=== PATIENT | male | born 1945 | race Caucasian/White ===

== ENCOUNTER 2018-03-08 13:26 | Inpatient (IN) | payer OTHER ==
[2018-03-08 14:27] LABS: Absolute Lymphocytes (CBC) 0.6 K/uL (0.7-4.9); Absolute Monocytes 0.3 K/uL (0.1-1.3); Absolute Neutrophil 10.8 K/uL (1.8-8.0); Basophils % 0.3 % (0-1.3); Hematocrit 44.1 % (39.6-49.0); Lymphocytes % 4.9 % (15.3-44.8); MCH 30.9 pg (27.0-35.0); MCV 94.5 fL (80-100); MPV 7.8 fL (7.6-11.3); Monocytes % 2.7 % (3.3-12.3); RBC Red Blood Cell Count 4.67 M/uL (4.33-5.43)
[2018-03-08 14:30] LABS: Protime INR 0.98
[2018-03-08 14:35] LABS: Magnesium 1.7 mg/dL (1.8-2.5)
[2018-03-08 14:43] LABS: CKMB Creatine Kinase MB 8.1 ng/ml (0.3-4.0)
[2018-03-08 14:58] LABS: Blood Morphology Comment NOT SEEN (NOT SEEN); Platelet Estimate ADEQ; Urine White Blood Cell Casts OK
--- NOTE | 2018-03-08 16:19 | RAD REPORT ---
EXAM DESCRIPTION: Nikhil Single View03/08/2018 3:29 pm CLINICAL HISTORY: Chest pain COMPARISON: none FINDINGS: The lungs appear clear of acute infiltrate. The heart is normal size IMPRESSION: No acute abnormalities displayed
--- NOTE | 2018-03-08 18:21 | ER ---
Nurse's Notes 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 Transition of care: patient was not received from another setting of care. Onset of symptoms was March 08, 2018. Initial Sepsis Screen: Does the patient meet any 2 criteria? No. Patient's initial sepsis screen is negative. Does the patient have a suspected source of infection? No. Patient's initial sepsis screen is negative. Care prior to arrival: Medication(s) given: ASA, 325 mg, x 1, IV initiated. 20 GA, in the right antecubital area. 13:34 Method Of Arrival: EMS: [facility] ph 13:34 Acuity: GUSTAVO 3 ph Historical: - Allergies: 13:40 No Known Drug Allergies; aj - Home Meds: 13:40 omeprazole 20 mg Oral cpDR 1 cap once daily [Active]; levothyroxine 125 mcg tab 1 tab aj once daily [Active]; lisinopril 10 mg Oral tab 1 tab once daily [Active]; paroxetine mesylate oral oral [Active]; clopidogrel 75 mg oral tab 1 tab once daily [Active]; loratadine 10 mg oral TbDL 1 tab once daily [Active]; metoprolol tartrate 100 mg Oral tab 1 tab once daily [Active]; rosuvastatin 10 mg oral tab 1 tab once daily [Active]; - PMHx: 13:40 Hypertension; Hyperlipidemia; Myocardial infarction; Hypothyroidism; aj - PSHx: 13:40 Heart stents; aj - Immunization history:: Adult Immunizations unknown. - Family history:: not pertinent. - Social history:: Smoking status: Patient uses tobacco products, chewing tobacco. - Hospitalizations: : No recent hospitalization is reported. Screenin:42 Abuse screen: Denies threats or abuse. Denies injuries from another. Nutritional ph screening: No deficits noted. Tuberculosis screening: No symptoms or risk factors identified. Fall Risk No fall in past 12 months (0 pts). No secondary diagnosis (0 pts). IV access (20 points). Ambulatory Aid- None/Bed Rest/Nurse Assist (0 pts). Gait- Normal/Bed Rest/Wheelchair (0 pts) Mental Status- Oriented to own ability (0 pts). Assessment: 13:47 General: Appears in no apparent distress. comfortable, unkempt, Behavior is calm, ph cooperative, appropriate for age, Denies fever, feeling ill. Pain: Complains of pain in chest Pain does not radiate. Quality of pain is described as pressure, Pain began 1 hour ago. Neuro: Level of Consciousness is awake, alert, obeys commands, Oriented to person, place, time, situation. Cardiovascular: Reports chest pain, diaphoresis, fatigue, lightheadedness, nausea, shortness of breath, vomiting, Denies syncope, Capillary refill < 3 seconds Patient's skin is warm and dry. Chest pain quality is pressure, is located in right left anterior chest wall began 1 hour prior to arrival. GI: Reports upper abdominal pain, diarrhea, nausea, vomiting, prior to onset of chest pain. Derm: Skin is intact, is healthy with good turgor, Skin is pink, warm \T\ dry. 14:33 Reassessment: Patient appears in no apparent distress at this time. Patient and/or ph family updated on plan of care and expected duration. Pain level reassessed. Patient is alert, oriented x 3, equal unlabored respirations, skin warm/dry/pink. Pt resting quietly, awaiting lab results, daughter at bedside. 15:44 Reassessment: Patient appears in no apparent distress at this time. No changes from ph previously documented assessment. Patient and/or family updated on plan of care and expected duration. Pain level reassessed. Patient is alert, oriented x 3, equal unlabored respirations, skin warm/dry/pink. 17:00 Reassessment: Patient appears in no apparent distress at this time. No changes from ph previously documented assessment. Patient and/or family updated on plan of care and expected duration. Pain level reassessed. Patient is alert, oriented x 3, equal unlabored respirations, skin warm/dry/pink. 18:14 Reassessment: Patient appears in no apparent distress at this time. Patient and/or ph family updated on plan of care and expected duration. Pain level reassessed. Patient is alert, oriented x 3, equal unlabored respirations, skin warm/dry/pink. Pt resting quietly, awaiting results of repeat cardiac enzymes. 19:38 General: Appears in no apparent distress. comfortable, Behavior is calm, cooperative, ao appropriate for age. Pain: Complains of pain in chest Pain currently is 0 out of 10 on a pain scale. Neuro: Level of Consciousness is awake, alert, obeys commands, Oriented to person, place, time, situation. Cardiovascular: Capillary refill < 3 seconds Patient's skin is warm and dry. Respiratory: Airway is patent Respiratory effort is even, unlabored, Respiratory pattern is regular, symmetrical. GI: Abdomen is non-distended. : No signs and/or symptoms were reported regarding the genitourinary system. EENT: No signs and/or symptoms were reported regarding the EENT system. Derm: Skin is intact, is healthy with good turgor, Skin is pink, warm \T\ dry. Skin temperature is warm. Musculoskeletal: No signs and/or symptoms reported regarding the musculoskeletal system. Vital Signs: 13:40 BP 154 / 82; Pulse 55; Resp 18; Temp 97.5(TE); Pulse Ox 98% on R/A; ph 14:34 BP 144 / 75; Pulse 51; Resp 18; Pulse Ox 100% on R/A; ph 15:24 BP 161 / 77; Pulse 50; Resp 16; Pulse Ox 98% on R/A; ph 17:00 BP 164 / 72 (art line/); Pulse 55; Resp 16; Pulse Ox 99% on R/A; ph 18:15 BP 152 / 83; Pulse 65; Resp 18; Pulse Ox 99% on R/A; ph 19:38 BP 139 / 77; Pulse 64; Resp 18; Pulse Ox 98% on R/A; Pain 0/10; ao ED Course: 13:28 Patient arrived in ED. rn 13:28 William Kamara MD is Attending Physician. rn 13:34 Josi Lira RN is Primary Nurse. ph 13:39 Triage completed. ph 13:41 Arm band placed on. ph 13:44 Patient has correct armband on for positive identification. Placed in gown. Bed in low ph position. Call light in reach. Side rails up X 1. test carrier on. Pulse ox on. NIBP on. Warm blanket given. 14:00 Maintain EMS IV. Dressing intact. Good blood return noted. Site clean \T\ dry. Gauge \T\ ph site: 20 RAC. 14:01 X-ray completed. Portable x-ray completed in exam room. Patient tolerated procedure jr1 well. 15:29 XRAY Chest (1 view) In Process Unspecified. EDMS 18:21 Torres Topete DO is Hospitalizing Provider. rn 20:28 No provider procedures requiring assistance completed. Patient admitted, IV remains in ao place. Administered Medications: No medications were administered Outcome: 18:21 Decision to Hospitalize by Provider. rn 20:29 Admitted to Tele accompanied by tech, room 426, Report called to MOSES Díaz ao 20:29 Condition: stable 20:29 Instructed on the need for admit. 20:30 Patient left the ED. ao Signatures: Dispatcher [employer] EDMS Eunice Long, RN MOSES Rockwell Shyla jr1 William Kamara MD MD rn Hall, Patricia, RN RN ph Ortiz, Alex, RN RN ao Corrections: (The following items were deleted from the chart) 18:18 18:15 BP 152 / 83; Pulse 65bpm; Resp 84bpm; Pulse Ox 99% RA; ph ph
--- NOTE | 2018-03-08 18:22 | EDPHYS ---
Physician Documentation [facility] Name: Georgi Bear Age: 72 yrs Sex: Male : 1945 Arrival Date: 03/08/2018 Time: 13:28 Bed 5 Private MD: ED Physician William Kamara HPI: 03/08 13:39 This 72 yrs old Male presents to ER via Unassigned with complaints of chest rn pain. 13:39 The patient or guardian reports chest pain that is located primarily in the substernal rn area. Onset: 1 hour(s) ago. The pain does not radiate. Associated signs and symptoms: Pertinent positives: diaphoresis, nausea. The chest pain is described as a heaviness. Duration: The patient or guardian reports a single episode. Modifying factors: The symptoms are alleviated by nothing. the symptoms are aggravated by nothing. Severity of pain: At its worst the pain was moderate in the emergency department the pain has improved. The patient has experienced a previous episode. Reports 1 hour of heaviness, non-radiating, assoc with nausea and diaphoresis. . Historical: - Allergies: 13:40 No Known Drug Allergies; aj - Home Meds: 13:40 omeprazole 20 mg Oral cpDR 1 cap once daily [Active]; levothyroxine 125 mcg tab 1 tab aj once daily [Active]; lisinopril 10 mg Oral tab 1 tab once daily [Active]; paroxetine mesylate oral oral [Active]; clopidogrel 75 mg oral tab 1 tab once daily [Active]; loratadine 10 mg oral TbDL 1 tab once daily [Active]; metoprolol tartrate 100 mg Oral tab 1 tab once daily [Active]; rosuvastatin 10 mg oral tab 1 tab once daily [Active]; - PMHx: 13:40 Hypertension; Hyperlipidemia; Myocardial infarction; Hypothyroidism; aj - PSHx: 13:40 Heart stents; aj - Immunization history:: Adult Immunizations unknown. - Family history:: not pertinent. - Social history:: Smoking status: Patient uses tobacco products, chewing tobacco. - Hospitalizations: : No recent hospitalization is reported. ROS: 13:39 Constitutional: Negative for fever, chills, and weight loss, Eyes: Negative for injury, rn pain, redness, and discharge, Neck: Negative for injury, pain, and swelling, Cardiovascular: Negative for palpitations, and edema, Respiratory: Negative for shortness of breath, cough, wheezing, and pleuritic chest pain, Abdomen/GI: Negative for abdominal pain, vomiting, and constipation, Back: Negative for injury and pain, MS/Extremity: Negative for injury and deformity, Skin: Negative for injury, rash, and discoloration, Neuro: Negative for headache, and seizure. Exam: 13:39 Constitutional: This is a well developed, well nourished patient who is awake, alert, rn and in no acute distress. Head/Face: Normocephalic, atraumatic. Eyes: Pupils equal round and reactive to light, extra-ocular motions intact. Lids and lashes normal. Conjunctiva and sclera are non-icteric and not injected. Cornea within normal limits. Periorbital areas with no swelling, redness, or edema. Neck: Trachea midline, no thyromegaly or masses palpated, and no cervical lymphadenopathy. Supple, full range of motion without nuchal rigidity, or vertebral point tenderness. No Meningismus. Cardiovascular: bradycardic, regular, no murmur Respiratory: Lungs have equal breath sounds bilaterally, clear to auscultation and percussion. No rales, rhonchi or wheezes noted. No increased work of breathing, no retractions or nasal flaring. Abdomen/GI: Soft, non-tender, with normal bowel sounds. No distension or tympany. No guarding or rebound. No evidence of tenderness throughout. MS/ Extremity: Pulses equal, no cyanosis. Neurovascular intact. Full, normal range of motion. Equal circumference. Neuro: Awake and alert, GCS 15, oriented to person, place, time, and situation. Cranial nerves II-XII grossly intact. Motor strength 5/5 in all extremities. Sensory grossly intact. 14:02 ECG was reviewed by the Attending Physician. rn Vital Signs: 13:40 BP 154 / 82; Pulse 55; Resp 18; Temp 97.5(TE); Pulse Ox 98% on R/A; ph 14:34 BP 144 / 75; Pulse 51; Resp 18; Pulse Ox 100% on R/A; ph 15:24 BP 161 / 77; Pulse 50; Resp 16; Pulse Ox 98% on R/A; ph 17:00 BP 164 / 72 (art line/); Pulse 55; Resp 16; Pulse Ox 99% on R/A; ph 18:15 BP 152 / 83; Pulse 65; Resp 18; Pulse Ox 99% on R/A; ph 19:38 BP 139 / 77; Pulse 64; Resp 18; Pulse Ox 98% on R/A; Pain 0/10; ao MDM: 13:28 Patient medically screened. rn 15:54 ED course: Offered observation for chest pain given similar presentation in past that rn ended up as MD, patient does not want to be admitted/stay overnight, convinced him to get atleast repeat ecg/trop and if still normal then can go home with close cardiology/pcp f/u. . 18:19 Differential diagnosis: acute myocardial infarction, acute pericarditis, coronary rn artery disease pericarditis, pleurisy, pneumonia, pneumothorax. The patient was not given aspirin in the Emergency Department. Administered by EMS. Data reviewed: vital signs, nurses notes, lab test result(s), EKG, radiologic studies, plain films, and as a result, I will admit patient. Counseling: I had a detailed discussion with the patient and/or guardian regarding: the historical points, exam findings, and any diagnostic results supporting the discharge/admit diagnosis, lab results, radiology results, the need for further work-up and treatment in the hospital. ED course: repeat trop normal, no change, CKMB decreasing, still having chest pain, family arrived and convinced to stay overnight, admitted to Dr. Martin \T\ [id number]. . 03/08 13:30 Order name: Basic Metabolic Panel rn 03/08 13:30 Order name: BNP; Complete Time: 14:57 rn 03/08 13:30 Order name: CBC with Diff; Complete Time: 15:18 rn 03/08 13:30 Order name: Ckmb rn 03/08 13:30 Order name: CPK; Complete Time: 14:57 rn 03/08 13:30 Order name: Magnesium; Complete Time: 14:57 rn 03/08 13:30 Order name: PT-INR; Complete Time: 14:57 rn 03/08 13:30 Order name: Ptt, Activated; Complete Time: 14:57 rn 03/08 13:30 Order name: Troponin (emerg Dept Use Only); Complete Time: 14:57 rn 03/08 13:31 Order name: Basic Metabolic Panel; Complete Time: 14:57 ED[facility] 03/08 13:31 Order name: CKMB Creatine Kinase MB; Complete Time: 14:57 EDNH 03/08 14:32 Order name: CBC Smear Scan; Complete Time: 15:18 [facility] 03/08 16:29 Order name: Troponin (emerg Dept Use Only); Complete Time: 17:42 rn 03/08 16:29 Order name: Ckmb; Complete Time: 17:42 rn 03/08 13:30 Order name: XRAY Chest (1 view); Complete Time: 16:28 rn 03/08 13:30 Order name: EKG; Complete Time: 13:31 rn 03/08 13:30 Order name: Cardiac monitoring; Complete Time: 14:35 rn 03/08 13:30 Order name: EKG - Nurse/Tech; Complete Time: 14:35 rn 03/08 13:30 Order name: IV Saline Lock; Complete Time: 14:35 rn 03/08 13:30 Order name: Labs collected and sent; Complete Time: 14:35 rn 03/08 13:30 Order name: O2 Per Protocol; Complete Time: 14:35 rn 03/08 13:30 Order name: O2 Sat Monitoring; Complete Time: 14:36 rn 03/08 16:29 Order name: EKG; Complete Time: 16:29 rn 03/08 16:29 Order name: EKG - Nurse/Tech; Complete Time: 18:13 rn EC:02 Rate is 49 beats/min. Rhythm is regular. QRS Browns is Normal. MA interval is normal. QRS rn interval is normal. QT interval is normal. No Q waves. T waves are Normal. No ST changes noted. Clinical impression: Normal ECG. Interpreted by me. Administered Medications: No medications were administered Disposition: 03/08/18 18:21 Hospitalization ordered by Torres Topete for Observation. Preliminary diagnosis is Chest pain, unspecified. - Bed requested for Telemetry/MedSurg (observation). - Status is Observation. ao - Condition is Stable. - Problem is new. - Symptoms have improved. UTI on Admission? No Signatures: Dispatcher [employer] EDMS Eunice Long RN William Robles MD MD rn Hall, Patricia, RN RN ph Ortiz, Alex RN Josy Ferrara Corrections: (The following items were deleted from the chart) 18:24 18:21 Hospitalization Ordered by [facility] DO for Observation. Preliminary eb diagnosis is Chest pain, unspecified. Bed requested for Telemetry/MedSurg (observation). Status is Observation. Condition is Stable. Problem is new. Symptoms have improved. UTI on Admission? No. rn 18:27 18:24 03/08/2018 18:21 Hospitalization Ordered by [facility] DO for Observation. eb Preliminary diagnosis is Chest pain, unspecified. Bed requested for Telemetry/MedSurg (observation). Status is Observation. Condition is Stable. Problem is new. Symptoms have improved. UTI on Admission? No. eb 18:56 18:27 03/08/2018 18:21 Hospitalization Ordered by [facility] DO for Observation. eb Preliminary diagnosis is Chest pain, unspecified. Bed requested for Telemetry/MedSurg (observation). Status is Observation. Condition is Stable. Problem is new. Symptoms have improved. UTI on Admission? No. eb 20:30 18:56 03/08/2018 18:21 Hospitalization Ordered by [facility] for Observation. ao Preliminary diagnosis is Chest pain, unspecified. Bed requested for Telemetry/MedSurg (observation). Status is Observation. Condition is Stable. Problem is new. Symptoms have improved. UTI on Admission? No. eb
--- NOTE | 2018-03-08 19:49 | P.HP ---
Certification for Inpatient Patient admitted to: Observation With expected LOS: <2 Midnights Practitioner: I am a practitioner with admitting privileges, knowledge of patient current condition, hospital course, and medical plan of care. Services: Services provided to patient in accordance with Admission requirements found in Title 42 Section 412.3 of the Code of Federal Regulations Patient History Date of Service: 03/08/18 Reason for admission: chest pain History of Present Illness: Mr Bear is a 72 years old male with history of HTN, dyslipidemia, who came to ED due to chest pain. He states that he usually has recurrent episodes of chest pain that last for a few minutes and relieve by itself, starting many years ago. Today he had chest pain starting about 1 hour to come to ED. The pain was substernal, described as heaviness sensation, no radiation, about 10/10 of intensity, associated with N/V and diaphoresis. EKG shows non-specific ST-T abnormalities. Trop I negative x 2. Allergies No Known Drug Allergies Allergy (Verified 05/02/15 23:18) Unknown Home Medications: Aspirin Enteric Coated [Ecotrin*] 325 mg PO DAILY 05/02/15 Clopidogrel Bisulfate [Plavix*] 75 mg PO DAILY 05/02/15 Levothyroxine [Synthroid*] 125 mcg PO [id number] 05/02/15 Lisinopril 10 mg PO DAILY 05/02/15 Loratadine [Claritin*] 10 mg PO DAILY 05/02/15 Metoprolol Tartrate [Lopressor] 100 mg PO BID 05/02/15 Omeprazole 20 mg PO DAILY 05/02/15 Rosuvastatin [Crestor*] 10 mg PO DAILY 05/02/15 Primidone [Mysoline] 50 mg PO DAILY #30 tablet 05/04/15 Thiamine HCl [Vitamin B-1*] 100 mg PO DAILY #15 tablet 05/04/15 - Past Medical/Surgical History Diabetic: No -: HTn -: High Cholesteral -: Hypothyroidism -: Seasonal Allergies -: Heart stents - Family History Family History: Reviewed- Non-Contributory - Social History Smoking Status: Former smoker Alcohol use: Yes CD- Drugs: No Caffeine use: Yes Place of Residence: Home Review of Systems 10-point ROS is otherwise unremarkable Physical Examination - Physical Exam General: Alert, In no apparent distress HEENT: Atraumatic, PERRLA, Mucous membr. moist/pink, EOMI, Sclerae nonicteric Neck: Supple, 2+ carotid pulse no bruit, No LAD, Without JVD or thyroid abnormality Respiratory: Clear to auscultation bilaterally, Normal air movement Cardiovascular: Regular rate/rhythm, Normal S1 S2 Gastrointestinal: Normal bowel sounds, Tenderness (teneder to palpation in epigastrium.) Musculoskeletal: No tenderness Integumentary: No rashes Neurological: Normal speech, Normal strength at 5/5 x4 extr, Normal tone, Normal affect Lymphatics: No axilla or inguinal lymphadenopathy - Studies Laboratory Data (last 24 hrs) 03/08/18 14:10: PT 11.6, INR 0.98, APTT 24.0 L 03/08/18 14:10: WBC 11.7 H, Hgb 14.5, Hct 44.1, Plt Count 276 03/08/18 14:10: B-Natriuretic Peptide 68 03/08/18 14:10: Sodium 137, Potassium 4.0, BUN 10, Creatinine 0.93, Glucose 165 H, Magnesium 1.7 L Assessment and Plan - Problems (Diagnosis) (1) Chest pain Current Visit: Yes Status: Acute Qualifiers: Chest pain type: precordial pain Qualified Code(s): R07.2 - Precordial pain (2) HTN (hypertension) Current Visit: Yes Status: Acute Qualifiers: Hypertension type: essential hypertension Qualified Code(s): I10 - Essential (primary) hypertension (3) Dyslipidemia Current Visit: Yes Status: Acute - Plan The patient will be admitted to the hospital under observation due to chest pain. So far he has negative cardiac enzymes and no EKG significant changes. 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 Will resume ASA. Plavix, will check lipid profile, continue statins, cardiology consult, order ECHO. - Advance Directives Does patient have a Living Will: No Does patient have a Durable POA for Healthcare: No - Code Status/Comfort Care Code Status Assessed: Yes Code Status: Full Code
[2018-03-08] MEDS ORDERED: MORPHINE 4 MG/ML SYR IV PRN (20:35)
[2018-03-08] MEDS ORDERED: NITROGLYCERIN/D5W 50 MG/250 ML BTL IV PRN (20:35)
[2018-03-08 21:37] LABS: Absolute Lymphocytes (CBC) 1.2 K/uL (0.7-4.9); Absolute Monocytes 1.1 K/uL (0.1-1.3); Absolute Neutrophil 12.6 K/uL (1.8-8.0); Basophils % 0.2 % (0-1.3); Lymphocytes % 8.3 % (15.3-44.8); MCH 31.7 pg (27.0-35.0); MCV 92.8 fL (80-100); MPV 7.6 fL (7.6-11.3); Monocytes % 7.3 % (3.3-12.3); RBC Red Blood Cell Count 4.42 M/uL (4.33-5.43)
[2018-03-08 22:04] LABS: CKMB Creatine Kinase MB 5.6 ng/ml (0.3-4.0); Potassium 4.1 mEq/L (3.6-5.0)
[2018-03-08] MEDS ORDERED: MAGNESIUM SULFATE 1 gm IVPB 1 GM/100 ML BAG IV ONE (22:07)
[2018-03-09] MEDS: ACETAMINOPHEN 500 MG TAB PO PRN ×3 (00:38→17:58)
[2018-03-09] MEDS: POLYETHYL GLY 3350 17 GM/DOSE PO PRN (01:16)
[2018-03-09 05:40] LABS: BUN Blood Urea Nitrogen 9 mg/dL (6-20); Bicarbonate 26 mEq/L (21-31); CKMB Creatine Kinase MB 3.1 ng/ml (0.3-4.0); Creatine Phosphokinase 179 IU/L (22-269); Glucose Level 114 mg/dL (65-120); Magnesium 1.9 mg/dL (1.8-2.5); Potassium 3.7 mEq/L (3.6-5.0); Sodium Level 135 mEq/L (135-145)
--- NOTE | 2018-03-09 05:49 | EKG ---
Test Date: 2018-03-08 Test Time: 13:58:10 Events Intern: JEANNE MEASUREMENT RESULTS: Intervals: Rate: 49 VA: 156 QRSD: 104 QT: 458 QTc: 413 [place]k: P: 53 VA: 156 QRS: 70 T: 60 INTERPRETIVE STATEMENTS: Sinus bradycardia Otherwise normal ECG Compared to ECG 05/02/2015 11:51:33 Sinus rhythm no longer present Electronically Signed On 03-09-18 05:48:05 CDT by Abel Dalal
--- NOTE | 2018-03-09 05:49 | EKG ---
Test Date: 2018-03-08 Test Time: 17:22:12 Saturation Diver: TERA MEASUREMENT RESULTS: Intervals: Rate: 57 MT: 142 QRSD: 102 QT: 432 QTc: 420 [place]: P: 37 MT: 142 QRS: 82 T: 71 INTERPRETIVE STATEMENTS: Sinus bradycardia Otherwise normal ECG Compared to ECG 03/08/2018 13:58:10 No significant changes Electronically Signed On 03-09-18 05:48:01 CDT by Abel Dalal
[2018-03-09] MEDS ORDERED: POTASSIUM 25 MEQ EFFERV TAB PO ONE (06:30)
[2018-03-09] MEDS: ASPIRIN EC 81 MG TAB PO SCH (08:17)
[2018-03-09] MEDS: ENOXAPARIN 40 MG/0.4 ML SQ SCH (08:17)
[2018-03-09 08:27] LABS: Urine Appearance CLOUDY; Urine Bilirubin NEGATIVE (NEG); Urine Blood 2+ (NEG); Urine Color DK YELLOW; Urine Glucose NEGATIVE (NEG); Urine Protein 2+ (NEG); Urine Specific Gravity 1.025 (1.005-1.030)
[2018-03-09 08:44] LABS: Urine Bacteria LOADED /HPF (NONE SEEN); Urine Culture Reflex Order REFLEXED
[2018-03-09] MEDS: HYDROCODONE/APAP 5/325 MG TAB PO PRN (09:06)
[2018-03-09] MEDS: CEFTRIAXONE/SWI 1gm 1 GM/10 ML SYR IVP SCH (12:12)
[2018-03-09 13:46] LABS: CKMB Creatine Kinase MB 1.7 ng/ml (0.3-4.0)
--- NOTE | 2018-03-09 16:13 | P.PN ---
Subjective Date of Service: 03/09/18 Chief Complaint: chest pain Subjective: Other (complaining of back pain especially on the right side) Review of Systems 10-point ROS is otherwise unremarkable Physical Examination - Vital Signs Temperature: 98.8 F Blood Pressure: 114/65 Pulse: 80 Respirations: 16 Pulse Ox (%): 95 - Physical Exam General: Alert, In no apparent distress, Oriented x3 HEENT: Atraumatic, Normocephalic, PERRLA Neck: Supple, JVD not distended, No Thyromegaly Respiratory: Clear to auscultation bilaterally, Normal air movement Cardiovascular: No edema, Normal pulses, Regular rate/rhythm, Normal S1 S2, No gallops, No rubs, No murmurs Gastrointestinal: Normal bowel sounds, Soft and benign, W/out hepatosplenomegaly , No ascites, No tenderness, No masses, No rebound, No guarding Musculoskeletal: No clubbing, No swelling, No contractures, No erythema, No tenderness, No warmth Assessment And Plan - Current Problems (Diagnosis) (1) UTI (urinary tract infection) Current Visit: Yes Status: Acute Plan: rising wbc with fever this am will start ceftraixone follow culture results (2) Chest pain Current Visit: Yes Status: Acute Plan: resolved, appeared to be atypical serial enzymes and EKG negative Qualifiers: Chest pain type: precordial pain Qualified Code(s): R07.2 - Precordial pain (3) HTN (hypertension) Current Visit: Yes Status: Acute Plan: restart home medication Qualifiers: Hypertension type: essential hypertension Qualified Code(s): I10 - Essential (primary) hypertension Physician Review: Patient Assessed, Agree with Above Assessment and Plan Time Spent Managing PTS Care (In Minutes): 25
[2018-03-10] MEDS: POLYETHYL GLY 3350 17 GM/DOSE PO PRN (03:48)
[2018-03-10] MEDS: HYDROCODONE/APAP 5/325 MG TAB PO PRN (03:48)
[2018-03-10 06:30] LABS: Potassium 3.6 mEq/L (3.6-5.0)
[2018-03-10] MEDS ORDERED: POTASSIUM 25 MEQ EFFERV TAB PO ONE (06:37)
[2018-03-10] MEDS ORDERED: Morphine 2 MG/2 ML SYR IV PRN (07:28)
[2018-03-10] MEDS ORDERED: NA CHLORIDE 0.9% 1,000 ML IV SCH (08:00)
[2018-03-10 08:17] LABS: Absolute Monocytes 0.3 K/uL (0.1-1.3); Absolute Neutrophil 11.2 K/uL (1.8-8.0); Basophils % 0.2 % (0-1.3); Hematocrit 44.2 % (39.6-49.0); Lymphocytes % 7.9 % (15.3-44.8); MCH 31.6 pg (27.0-35.0); MCV 94.2 fL (80-100); MPV 7.6 fL (7.6-11.3); Monocytes % 2.4 % (3.3-12.3); RBC Red Blood Cell Count 4.69 M/uL (4.33-5.43)
[2018-03-10] MEDS: ENOXAPARIN 40 MG/0.4 ML SQ SCH (08:43)
[2018-03-10] MEDS: ASPIRIN EC 81 MG TAB PO SCH (08:43)
[2018-03-10] MEDS: CEFTRIAXONE/SWI 1gm 1 GM/10 ML SYR IVP SCH (08:43)
[2018-03-10] MEDS ORDERED: CLOPIDOGREL 75 MG TABLET PO SCH (09:00)
[2018-03-10] MEDS ORDERED: PARoxetine HCl 10 MG TAB PO SCH (09:00)
[2018-03-10] MEDS ORDERED: METOPROLOL XL 100 MG TAB PO SCH (09:00)
[2018-03-10] MEDS ORDERED: LISINOPRIL 10 MG TAB PO SCH (09:00)
[2018-03-10] MEDS ORDERED: DONEPEZIL HCL 5 MG TAB PO SCH (09:00)
[2018-03-10 09:07] LABS: Thyroid Stimulating Hormone 13.25 uIU/mL (0.34-5.60)
--- NOTE | 2018-03-10 09:14 | RAD REPORT ---
EXAM DESCRIPTION: CT - Abdomen Pelvis Wo Contrast - 03/10/2018 8:15 am CLINICAL HISTORY: Abdominal pain COMPARISON: None TECHNIQUE: Computed axial tomography of the abdomen and pelvis was obtained. IV and oral contrast we re not requested. All CT scans are performed using dose optimization technique as appropriate and may include automated exposure control or mA/KV adjustment according to patient size. FINDINGS: The evaluation of solid organs, vessels and bowel is limited secondary to the lack of con trast administration. The liver, spleen, pancreas, adrenals and kidneys appear grossly normal. The appendix is enlarged and indistinct. It contains several stones. Extraluminal air is noted. Marke d stranding is present within the adjacent fat. A small amount ascites is present. A 3 centimeter flu id collection within the cul-de-sac may represent an early abscess IMPRESSION: Perforated appendicitis The exam was discussed with Dr. Topete at 9:05 a.m. March 10, 2018
[2018-03-10 09:25] LABS: Blood Morphology Comment NOT SEEN (NOT SEEN); Platelet Estimate ADEQ; Urine White Blood Cell Casts OK
[2018-03-10] MEDS ORDERED: SODIUM CHLORIDE 0.9% 10ML INJ IV PRN (09:26)
[2018-03-10] MEDS ORDERED: ACETAMINOPHEN 650MG/RECT SUPP PR PRN (09:30)
[2018-03-10] MEDS: METRONIDAZOLE 500mg IVPB 500 MG/100 ML BAG IV SCH ×2 (09:32→17:30)
[2018-03-10] MEDS: Levofloxacin500mg IV 500 MG/100 ML BAG IV SCH (09:34)
--- NOTE | 2018-03-10 09:55 | P.PN ---
Subjective Date of Service: 03/10/18 Primary Care Provider: Dr. Mariano Chief Complaint: chest pain/abdominal pain Subjective: Other (Patient with more abdominal pain noted to the periumbilical and lower quadrant region.) Physical Examination - Vital Signs Temperature: 99.1 F Blood Pressure: 133/71 Pulse: 94 Respirations: 18 Pulse Ox (%): 93 - Physical Exam General: Alert, In no apparent distress, Oriented x3, Cooperative HEENT: Atraumatic Neck: Supple Respiratory: Clear to auscultation bilaterally, Normal air movement Cardiovascular: Normal pulses, Regular rate/rhythm Gastrointestinal: Hypoactive (Throughout), Distended (Some distension noted), Tenderness (Pain to the periumbilical and lower quadrant region. Also to the right lower quadrant.) Musculoskeletal: No erythema, No tenderness, No warmth Integumentary: No tenderness/swelling, No erythema, No warmth, No cyanosis Neurological: Normal speech, Normal strength at 5/5 x4 extr, Normal tone, Normal affect - Studies Medications List Reviewed: Yes Assessment & Plan - Problems (Diagnosis) (1) Perforated appendicitis Current Visit: Yes Status: Acute Plan: Patient with increasing abdominal pain, abdominal distension this morning. Patient with nausea but no vomiting. Stat CT scan shows perforated appendicitis. Case discussed at length with surgery. I will keep the patient NPO. I will change IV antibiotic therapy to Levaquin and Flagyl. I will increase IV fluids. Anticipate surgery. Surgery-Dr. Valdivia to evaluate patient soon. Will transfer the patient to ICU for close monitoring. Will obtain blood cultures and lab. Case discussed at length with patient and . They understand the risks and benefits of surgery. (2) Hypothyroidism Current Visit: Yes Status: Chronic Plan: I will change medication to IV as the patient is NPO. Qualifiers: Hypothyroidism type: unspecified Qualified Code(s): E03.9 - Hypothyroidism , unspecified (3) Chest pain Current Visit: Yes Status: Acute Plan: So far cardiac enzymes have been unremarkable. Will check echocardiogram. Patient low risk for surgery. Qualifiers: Chest pain type: precordial pain Qualified Code(s): R07.2 - Precordial pain (4) Dyslipidemia Current Visit: Yes Status: Chronic Plan: Will review fasting lipid panel. Will hold his medication at this time. (5) HTN (hypertension) Current Visit: Yes Status: Chronic Plan: Will hold blood pressure medication at this time. Will monitor closely. Qualifiers: Hypertension type: essential hypertension Qualified Code(s): I10 - Essential (primary) hypertension (6) UTI (urinary tract infection) Current Visit: Yes Status: Acute Plan: Patient with UTI. Urine culture pending. Will obtain blood cultures. Will continue as above for ruptured appendix. Qualifiers: Urinary tract infection type: site unspecified (7) GERD (gastroesophageal reflux disease) Current Visit: Yes Status: Suspected Plan: Will start IV Protonix. (8) Hyponatremia Current Visit: Yes Status: Acute Plan: This may be from volume depletion. Will increase IV fluids. Discharge Plan: Home Plan to discharge in: Greater than 2 days - Code Status/Comfort Care Code Status Assessed: Yes Code Status: Full Code Time Spent Managing Pts Care (In Minutes): 55
[2018-03-10] MEDS ORDERED: DIPHENHYDRAMINE 50 MG/ML VIAL ONE (10:35)
[2018-03-10] MEDS: NA CHLORIDE 0.9% 1,000 ML IV SCH ×3 (10:41→21:47)
[2018-03-10] MEDS ORDERED: Ringers Lactate 1,000 ML IV ONE (12:36)
[2018-03-10] MEDS ORDERED: PROPOFOL 200 MG/20 ML VIAL IV ONE (13:18)
[2018-03-10] MEDS ORDERED: MIDAZOLAM HCL 2 MG/2 ML INJ ONE (13:19)
[2018-03-10] MEDS ORDERED: LIDOCAINE 2% MPF 5 ML VIAL ONE (13:19)
[2018-03-10] MEDS ORDERED: ROCURONIUM 50 MG/5 ML VIAL IV ONE (13:20)
[2018-03-10] MEDS ORDERED: ONDANSETRON 4 MG/2 ML VIAL ONE (13:20)
[2018-03-10] MEDS ORDERED: FENTANYL CITR 100 MCG/2 ML ONE (13:21)
--- NOTE | 2018-03-10 13:58 | P.HP ---
Date of Service: 03/10/18 PC: This 72-year-old male presents emergency room with severe chest pain for diagnosis and treatment. HPC: Patient was admitted initially with chest pain. All teams complaining of pain and difficulty in the upper portion of his chest. He was admitted for observation and workup of this condition. His pain has now shifted to the right lower quadrant and he is having severe issues this morning. His primary care physician ordered a CT scan which demonstrates acute appendicitis with fecalith some possible perforation. PMH: Coronary artery disease PSHx: Negative SOC: No known allergy. Has been on Plavix, aspirin, and Lovenox SYS REVIEW: No cough, wheeze, shortness of breath. States he has had not any prior episodes of this chest pain. His abdomen had been not giving him any problems. Denies any urinary complaints. O/E awake alert very uncomfortable at the moment HEENT: Not jaundice Chest: Chest movement equal bilaterally ABD: Tender with guarding in the right lower quadrant LOCO: Intact DATA: Data white cell count, CT scan shows fecal this with small amount of free air fluid in the pelvis IMPRESSION: Acute abdomen with probable ruptured appendix PLAN: I will take him to the operating room for laparoscopic possible open appendectomy. The risks of this procedure have been discussed. The possibility of bleeding, infection, injury to bowel and surrounding structures were outlined. He understands and wants us to proceed. Possibility of abscess formation further surgery was also described.
[2018-03-10] MEDS ORDERED: Phenylephrine HCl 10 MG/ML 1 ML VIAL ONE (13:59)
[2018-03-10] MEDS ORDERED: FENTANYL CITR 250 MCG/5 ML ONE (14:56)
[2018-03-10] MEDS ORDERED: GLYCOPYRROLATE 0.2 MG/ML SYR ONE (15:06)
[2018-03-10] MEDS ORDERED: NEOSTIGMINE 1 MG/ML -5 ML SYRINGE ONE (15:07)
--- NOTE | 2018-03-10 15:09 | P.OP ---
Preoperative diagnosis: Acute abdomen Postoperative diagnosis: Acute abdomen with ruptured appendix Primary procedure: Laparoscopic laparoscopic appendectomy Secondary procedure: Drainage of intra-abdominal abscess Anesthesia: General Estimated blood loss: Less than 20 cc Specimen: 1 appendix Operative Technique: The patient was brought to the operating room and placed supine on the table. After the induction of adequate general endotracheal anesthesia, in the placement of a Yi catheter, the area of the abdomen was prepped with a DuraPrep solution, and he was draped in usual aseptic manner. A subumbilical incision was made. This was brought down through the skin and subcutaneous tissue. The Visiport was then used to enter the peritoneal cavity and created pneumoperitoneum to approximately 12 mm of mercury. Under direct vision a 5 mm trocar was placed in the right upper quadrant, and another 5 mm trocar in the lower midline. We were now able to visualize the right lower quadrant. We could see very obvious inflammatory tied there were adhesions of the omentum and the small bowel to the anterior abdominal wall. These adhesions were gently loosen. The omentum was swept to the side. Underneath a loop of small bowel we encounter some thick blackish foul-smelling that did purulent material consistent with a ruptured abscess. This was aspirated from the peritoneal cavity. Mobilizing this piece of small bowel allowed us to see the appendix that had been ruptured. It was just along the pelvic sidewall overlying the iliac news gently mobilize from the surrounding structures. The base was traced back to the cecum. At this point it was noted that this portion of the bowel was markedly inflamed and edematous. The appendix had actually ruptured just here at the base and we saw a fecalith freed and the peritoneal cavity. The appendix was fully amputated using the Metzenbaum scissors. Now grasping the base of the appendix were able to secure it with 2 pre tied sutures of chromic. The appendix having been ligated, the mesentery of the appendix was taken down using a vascular reload on the linear Stapler. The specimen was now placed into an Endo pouch, and brought out through the umbilical trocar site. The abdomen was now inspected to ensure adequate hemostasis. Lower quadrant was irrigated with a copious amount of saline solution until the effluent was clear. A 10 mm drain was introduced into the peritoneal cavity. It was placed in the right lower quadrant and brought out more lower most trocar. Once again the at was inspected for adequate hemostasis. The intestines were returned to their anatomical positions. The patient was flattened on the OR table. The pneumoperitoneum was now collapsed, the suture that had been placed using the Endo Close was tied to approximate the umbilical fascia. Winston were then applied to the skin. At the end of the procedure he was in a stable condition when sent to the recovery room. Needle sponge instrument count were correct. 1 drain was placed. Estimated blood loss was less than 20 cc. Complications: None Drain(s): FRANCOISE drain Transferred to: Recovery Room Condition: Good
--- NOTE | 2018-03-10 16:33 | ECHO ---
HEIGHT: 6 ft 1 in WEIGHT: 202 lb 6.4 oz DATE OF STUDY: 03/10/[address]: Torres Topete DO 2-DIMENSIONAL: YES M.MODE: YES DOPPLER: YES COLOR FLOW: YES TDS: PORTABLE: DEFINITY: BUBBLE STUDY: DIAGNOSIS: PREOP CARDIAC HISTORY: CATHERIZATION: NO SURGERY: NO PROSTHETIC VALVE: NO PACEMAKER: NO MEASUREMENTS (cm) DIASTOLIC (NORMALS) SYSTOLIC (NORMALS) IVSd 1.0 (0.6-1.2) LA Diam 3.4 (1.9-4.0) LVEF 65% LVIDd 4.0 (3.5-5.7) LVIDs 2.6 (2.0-3.5) %FS 35% LVPWd 1.1 (0.6-1.2) Ao Diam 2.9 (2.0-3.7) 2 DIMENSIONAL ASSESSMENT: RIGHT ATRIUM: NORMAL LEFT ATRIUM: NORMAL RIGHT VENTRICLE: NORMAL LEFT VENTRICLE: NORMAL TRICUSPID VALVE: NORMAL MITRAL VALVE: NORMAL PULMONIC VALVE: NORMAL AORTIC VALVE: NORMAL PERICARDIAL EFFUSION: NONE AORTIC ROOT: NORMAL LEFT VENTRICULAR WALL MOTION: NORMAL DOPPLER/COLOR FLOW: IMPAIRED LEFT VENTRICULAR RELAXATION COMMENTS: NORMAL 2-DIMENSIONAL ECHOCARDIOGRAM. LEFT VENTRICULAR RELAXATION. TECHNOLOGIST: AMIRA CABRERA
[2018-03-10 18:44] LABS: Hematocrit 40.6 % (39.6-49.0)
[2018-03-10] MEDS: ACETAMINOPHEN 500 MG TAB PO PRN (20:15)
[2018-03-10] MEDS: HYDROMORPHONE HCL 2 MG/ML inj IV PRN (20:16)
[2018-03-10] MEDS: FAMOTIDINE 20 MG/2 ML VIAL IV SCH (20:17)
[2018-03-10 20:38] LABS: Absolute Lymphocytes (CBC) 0.7 K/uL (0.7-4.9); Absolute Monocytes 0.2 K/uL (0.1-1.3); Absolute Neutrophil 9.1 K/uL (1.8-8.0); Basophils % 0.2 % (0-1.3); Eosinophils % 0.1 % (0-4.4); Hematocrit 38.4 % (39.6-49.0); Lymphocytes % 7.3 % (15.3-44.8); MCV 93.7 fL (80-100); MPV 7.7 fL (7.6-11.3); Monocytes % 2.3 % (3.3-12.3); RBC Red Blood Cell Count 4.09 M/uL (4.33-5.43)
[2018-03-10 20:55] LABS: Albumin 2.8 g/dL (3.2-5.5); Bilirubin Total 0.8 mg/dL (0.3-1.2); Potassium 3.9 mEq/L (3.6-5.0)
[2018-03-10] MEDS ORDERED: ROSUVASTATIN 10 MG TAB PO SCH (21:00)
[2018-03-10 21:30] LABS: Anisocytosis 1+; Blood Morphology Comment NOTED (NOT SEEN); Platelet Estimate ADEQ
[2018-03-10 22:55] LABS: Hematocrit 38.2 % (39.6-49.0)
[2018-03-10] MEDS ORDERED: KCL 20 MEQ/100 mL IVPB 20 MEQ/100 ML BAG IV SCH (23:00)
[2018-03-11] MEDS: METRONIDAZOLE 500mg IVPB 500 MG/100 ML BAG IV SCH ×3 (00:48→16:34)
[2018-03-11] MEDS: HYDROCODONE/APAP 5/325 MG TAB PO PRN ×3 (00:51→19:25)
[2018-03-11] MEDS: HYDROMORPHONE HCL 2 MG/ML inj IV PRN ×2 (02:46→20:57)
[2018-03-11 03:06] LABS: Hematocrit 39.1 % (39.6-49.0)
--- NOTE | 2018-03-11 04:27 | P.PN ---
Date of Service: 03/10/18 Clinically patient is improving. Patient states he is having minimal pain. He feels like he is improving. Patient's hemoglobin is stable. Will continue to monitor in ICU and possible transfer to the floor in the morning. Further management as per diet per general surgery.
[2018-03-11 05:11] LABS: Absolute Lymphocytes (CBC) 0.7 K/uL (0.7-4.9); Absolute Monocytes 0.3 K/uL (0.1-1.3); Absolute Neutrophil 7.2 K/uL (1.8-8.0); Basophils % 0.3 % (0-1.3); Eosinophils % 0.6 % (0-4.4); Hematocrit 35.5 % (39.6-49.0); Lymphocytes % 8.1 % (15.3-44.8); MCH 32.5 pg (27.0-35.0); MCV 94.5 fL (80-100); MPV 7.5 fL (7.6-11.3); Monocytes % 3.2 % (3.3-12.3); RBC Red Blood Cell Count 3.76 M/uL (4.33-5.43)
[2018-03-11] MEDS: NA CHLORIDE 0.9% 1,000 ML IV SCH ×4 (05:14→20:56)
[2018-03-11 05:23] LABS: Magnesium 1.6 mg/dL (1.8-2.5); Potassium 3.8 mEq/L (3.6-5.0)
[2018-03-11] MEDS ORDERED: MAGNESIUM SULFATE 1 gm IVPB 1 GM/100 ML BAG IV ONE (06:00)
[2018-03-11] MEDS ORDERED: LEVOTHYROXINE SODIUM 100 MCG VIAL IV SCH (06:00)
[2018-03-11] MEDS ORDERED: LEVOTHYROXINE SOD 0.125 MG TAB PO SCH (06:00)
[2018-03-11] MEDS ORDERED: PANTOPRAZOLE 40MG TABLET PO SCH (06:30)
[2018-03-11] MEDS ORDERED: POTASSIUM CL SA 10 MEQ TAB PO ONE (08:00)
[2018-03-11] MEDS: FAMOTIDINE 20 MG/2 ML VIAL IV SCH ×2 (08:11→20:57)
[2018-03-11] MEDS ORDERED: PANTOPRAZOLE 40 MG INJ IVP SCH (09:00)
[2018-03-11] MEDS: Levofloxacin500mg IV 500 MG/100 ML BAG IV SCH (09:51)
--- NOTE | 2018-03-11 11:37 | P.PN ---
Subjective Date of Service: 03/11/18 Primary Care Provider: Dr. Mariano Chief Complaint: chest pain/abdominal pain Subjective: Improving (Patient feels better. He is tolerating a clear liquid diet. Pain stable at this time) Physical Examination - Vital Signs Temperature: 97.3 F Blood Pressure: 111/63 Pulse: 90 Respirations: 20 Pulse Ox (%): 95 - Physical Exam General: Alert, In no apparent distress, Oriented x3, Cooperative HEENT: Atraumatic Neck: Supple Respiratory: Clear to auscultation bilaterally, Normal air movement Cardiovascular: Normal pulses, Regular rate/rhythm Gastrointestinal: Hypoactive (Throughout), Soft and benign, Non-distended, No masses, No rebound, No guarding, Tenderness (Minimal pain noted) Musculoskeletal: No erythema, No tenderness, No warmth Integumentary: No tenderness/swelling, No erythema, No warmth, No cyanosis Neurological: Normal speech, Normal strength at 5/5 x4 extr, Normal tone, Normal affect Lymphatics: No axilla or inguinal lymphadenopathy - Studies Microbiology Data (last 24 hrs): 03/09/18 08:10 Clean Catch Urine [place] Count - Final >100,000 CFU/ML. 03/09/18 08:10 Clean Catch Urine - Final Escherichia Coli Medications List Reviewed: Yes Assessment & Plan - Problems (Diagnosis) (1) Perforated appendicitis Onset Date: 03/10/18 Current Visit: Yes Status: Acute Plan: Patient had surgery yesterday included laparoscopic appendectomy with drainage of abscess. Patient on IV antibiotic therapy. Pain stable at this time. Hemoglobin stable. Will consider transferring the patient to the floor if okay with surgery. Patient will need physical therapy. Patient tolerating diet. Diet has been adjusted to full liquid. IV fluids will be adjusted. (2) Hypothyroidism Onset Date: 03/10/18 Current Visit: Yes Status: Chronic Plan: I will change his medication to oral Qualifiers: Hypothyroidism type: unspecified Qualified Code(s): E03.9 - Hypothyroidism , unspecified (3) Chest pain Onset Date: 03/10/18 Current Visit: Yes Status: Acute Plan: So far cardiac enzymes have been unremarkable. Echocardiogram unremarkable Qualifiers: Chest pain type: precordial pain Qualified Code(s): R07.2 - Precordial pain (4) Dyslipidemia Onset Date: 03/10/18 Current Visit: Yes Status: Chronic Plan: Will continue with this medication (5) HTN (hypertension) Onset Date: 03/10/18 Current Visit: Yes Status: Chronic Plan: Will continue to hold blood pressure medication at this time. Will monitor closely. Qualifiers: Hypertension type: essential hypertension Qualified Code(s): I10 - Essential (primary) hypertension (6) UTI (urinary tract infection) Onset Date: 03/10/18 Current Visit: Yes Status: Acute Plan: Patient with UTI. Urine culture positive for E coli. Will continue with IV antibiotic therapy. Qualifiers: Urinary tract infection type: site unspecified (7) GERD (gastroesophageal reflux disease) Onset Date: 03/10/18 Current Visit: Yes Status: Suspected Plan: Will continue with medication Qualifiers: Esophagitis presence: esophagitis presence not specified Qualified Code(s) : K21.9 - Gastro-esophageal reflux disease without esophagitis (8) Hyponatremia Onset Date: 03/10/18 Current Visit: Yes Status: Acute Plan: Will adjust IV fluids (9) Intra-abdominal abscess Current Visit: Yes Status: Acute Plan: Drainage of intra-abdominal abscess done yesterday. Will monitor closely. Pathology pending Discharge Plan: Home Plan to discharge in: Greater than 2 days Time Spent Managing Pts Care (In Minutes): 55
[2018-03-11] MEDS: ENOXAPARIN 40 MG/0.4 ML SQ SCH (16:34)
[2018-03-11] MEDS ORDERED: ONDANSETRON 4 MG/2 ML VIAL IV PRN (19:32)
[2018-03-11] MEDS ORDERED: ONDANSETRON 4 MG/2 ML VIAL ONE (19:40)
[2018-03-11] MEDS: ROSUVASTATIN 10 MG TAB PO SCH (20:57)
[2018-03-12] MEDS: METRONIDAZOLE 500mg IVPB 500 MG/100 ML BAG IV SCH ×3 (01:00→17:29)
[2018-03-12] MEDS: HYDROCODONE/APAP 5/325 MG TAB PO PRN ×2 (02:18→11:51)
[2018-03-12 05:00] LABS: Absolute Lymphocytes (CBC) 0.8 K/uL (0.7-4.9); Absolute Monocytes 0.5 K/uL (0.1-1.3); Absolute Neutrophil 10.8 K/uL (1.8-8.0); Eosinophils % 0.1 % (0-4.4); Lymphocytes % 6.4 % (15.3-44.8); MCH 31.4 pg (27.0-35.0); MCV 95.2 fL (80-100); MPV 7.7 fL (7.6-11.3); Monocytes % 4.4 % (3.3-12.3); RBC Red Blood Cell Count 4.62 M/uL (4.33-5.43)
[2018-03-12 05:14] LABS: Magnesium 1.9 mg/dL (1.8-2.5); Potassium 4.4 mEq/L (3.6-5.0)
[2018-03-12] MEDS: NA CHLORIDE 0.9% 1,000 ML IV SCH ×4 (06:39→17:35)
[2018-03-12] MEDS: METOPROLOL TAR 25 MG TAB PO SCH (06:40)
[2018-03-12] MEDS: LEVOTHYROXINE SOD 0.125 MG TAB PO SCH (06:40)
[2018-03-12] MEDS: FAMOTIDINE 20 MG/2 ML VIAL IV SCH ×2 (08:29→22:05)
[2018-03-12] MEDS: PARoxetine HCl 10 MG TAB PO SCH (08:29)
--- NOTE | 2018-03-12 08:47 | P.PN ---
Subjective Date of Service: 03/12/18 Primary Care Provider: Dr. Mariano Chief Complaint: chest pain/abdominal pain Subjective: Improving (Patient improving. Patient tolerated clear liquid diet yesterday. Patient wanting to ambulate. No significant pain noted.) Physical Examination - Vital Signs Temperature: 97.5 F Blood Pressure: 130/86 Pulse: 120 Respirations: 21 Pulse Ox (%): 95 - Physical Exam General: Alert, In no apparent distress, Oriented x3, Cooperative HEENT: Atraumatic, Mucous membr. moist/pink Neck: Supple Respiratory: Clear to auscultation bilaterally, Normal air movement Cardiovascular: Normal pulses, Regular rate/rhythm Gastrointestinal: Hypoactive (Throughout), Soft and benign, No tenderness, No masses, No rebound, No guarding, Distended (Slight distention noted. FRANCOISE drain noted) Musculoskeletal: No erythema, No tenderness, No warmth Integumentary: No tenderness/swelling, No erythema, No warmth, No cyanosis Neurological: Normal speech, Normal strength at 5/5 x4 extr, Normal tone, Normal affect Lymphatics: No axilla or inguinal lymphadenopathy - Studies Microbiology Data (last 24 hrs): 03/09/18 08:10 Clean Catch Urine [place] Count - Final >100,000 CFU/ML. 03/09/18 08:10 Clean Catch Urine - Final Escherichia Coli Medications List Reviewed: Yes Assessment & Plan - Problems (Diagnosis) (1) Perforated appendicitis Onset Date: 03/10/18 Current Visit: Yes Status: Acute Plan: Patient doing well postop. Patient had laparoscopic appendectomy with drainage of intra-abdominal abscess. Continue IV antibiotic therapy. Will advance diet to full liquid. Patient awaiting bed to go to the floor. Will continue with physical therapy. Encourage ambulation. Will decrease IV fluids. Patient with FRANCOISE tube in place. Home likely in the next 2-3 days. Will discuss with surgery. Encourage incentive spirometer (2) Hypothyroidism Onset Date: 03/10/18 Current Visit: Yes Status: Chronic Plan: Will continue with his medication Qualifiers: Hypothyroidism type: unspecified Qualified Code(s): E03.9 - Hypothyroidism , unspecified (3) Chest pain Onset Date: 03/10/18 Current Visit: Yes Status: Acute Plan: Echocardiogram unremarkable. Qualifiers: Chest pain type: precordial pain Qualified Code(s): R07.2 - Precordial pain (4) Dyslipidemia Onset Date: 03/10/18 Current Visit: Yes Status: Chronic Plan: Will continue with his medication (5) HTN (hypertension) Onset Date: 03/10/18 Current Visit: Yes Status: Chronic Plan: Will continue with his medication. Qualifiers: Hypertension type: essential hypertension Qualified Code(s): I10 - Essential (primary) hypertension (6) UTI (urinary tract infection) Onset Date: 03/10/18 Current Visit: Yes Status: Acute Plan: Patient with UTI. Urine culture positive for E coli. Will continue with IV antibiotic therapy. Qualifiers: Urinary tract infection type: site unspecified (7) GERD (gastroesophageal reflux disease) Onset Date: 03/10/18 Current Visit: Yes Status: Suspected Plan: Will continue with medication Qualifiers: Esophagitis presence: esophagitis presence not specified Qualified Code(s) : K21.9 - Gastro-esophageal reflux disease without esophagitis (8) Hyponatremia Onset Date: 03/10/18 Current Visit: Yes Status: Acute Plan: Will adjust IV fluids (9) Intra-abdominal abscess Current Visit: Yes Status: Acute Plan: Drainage of intra-abdominal abscess done in surgery. Will monitor closely. Pathology pending. FRANCOISE tube remains in place. Continue with above plan of care Time Spent Managing Pts Care (In Minutes): 55
[2018-03-12] MEDS: Levofloxacin500mg IV 500 MG/100 ML BAG IV SCH (09:31)
[2018-03-12] MEDS ORDERED: MINERAL OIL 30 ML UCUP PO ONE (11:16)
[2018-03-12] MEDS: ENOXAPARIN 40 MG/0.4 ML SQ SCH (17:30)
[2018-03-12] MEDS: ROSUVASTATIN 10 MG TAB PO SCH (22:05)
[2018-03-13] MEDS: METRONIDAZOLE 500mg IVPB 500 MG/100 ML BAG IV SCH ×3 (00:36→18:29)
[2018-03-13] MEDS: NA CHLORIDE 0.9% 1,000 ML IV SCH ×2 (04:14→18:30)
[2018-03-13 05:11] LABS: Absolute Monocytes 0.6 K/uL (0.1-1.3); Absolute Neutrophil 6.6 K/uL (1.8-8.0); Basophils % 0.2 % (0-1.3); Eosinophils % 1.1 % (0-4.4); Hematocrit 37.1 % (39.6-49.0); Lymphocytes % 12.2 % (15.3-44.8); MCH 31.9 pg (27.0-35.0); MCV 93.9 fL (80-100); MPV 7.5 fL (7.6-11.3); Monocytes % 7.1 % (3.3-12.3); RBC Red Blood Cell Count 3.95 M/uL (4.33-5.43)
[2018-03-13 05:29] LABS: BUN Blood Urea Nitrogen 9 mg/dL (6-20); Bicarbonate 30 mEq/L (21-31); Glucose Level 102 mg/dL (65-120); Magnesium 1.9 mg/dL (1.8-2.5); Potassium 4.4 mEq/L (3.6-5.0); Sodium Level 135 mEq/L (135-145)
[2018-03-13] MEDS: LEVOTHYROXINE SOD 0.125 MG TAB PO SCH (06:15)
[2018-03-13] MEDS: METOPROLOL TAR 25 MG TAB PO SCH (06:15)
--- NOTE | 2018-03-13 09:52 | P.PN ---
Subjective Date of Service: 03/13/18 Primary Care Provider: Dr. Mariano Chief Complaint: chest pain/abdominal pain Subjective: Improving (Patient tolerating full liquid diet. No significant abdominal pain.) Physical Examination - Vital Signs Temperature: 98.2 F Blood Pressure: 126/69 Pulse: 76 Respirations: 16 Pulse Ox (%): 91 - Physical Exam General: Alert, In no apparent distress, Oriented x3, Cooperative HEENT: Atraumatic Neck: Supple Respiratory: Clear to auscultation bilaterally, Normal air movement Cardiovascular: Normal pulses, Regular rate/rhythm Gastrointestinal: Normal bowel sounds (Improved sounds bilateral), Soft and benign, No tenderness, No masses, No rebound, No guarding, Distended (Less distention noted) Musculoskeletal: No erythema, No tenderness, No warmth Integumentary: No erythema, No warmth, No cyanosis Neurological: Normal speech, Normal strength at 5/5 x4 extr, Normal tone, Normal affect Lymphatics: No axilla or inguinal lymphadenopathy - Studies Medications List Reviewed: Yes Assessment & Plan - Problems (Diagnosis) (1) Perforated appendicitis Onset Date: 03/10/18 Current Visit: Yes Status: Acute Plan: Patient doing well postop. Patient had laparoscopic appendectomy with drainage of intra-abdominal abscess. Continue IV antibiotic therapy. Will advance diet to soft diet. Encourage ambulation. Encourage incentive spirometer. Anticipate discharge in the next 1-2 days if improved with ambulation, tolerating diet and having bowel movement. Case discussed with surgery. (2) Hypothyroidism Onset Date: 03/10/18 Current Visit: Yes Status: Chronic Plan: Will continue with his medication Qualifiers: Hypothyroidism type: unspecified Qualified Code(s): E03.9 - Hypothyroidism , unspecified (3) Chest pain Onset Date: 03/10/18 Current Visit: Yes Status: Acute Plan: Echocardiogram unremarkable. Qualifiers: Chest pain type: precordial pain Qualified Code(s): R07.2 - Precordial pain (4) Dyslipidemia Onset Date: 03/10/18 Current Visit: Yes Status: Chronic Plan: Will continue with his medication (5) HTN (hypertension) Onset Date: 03/10/18 Current Visit: Yes Status: Chronic Plan: Will continue with his medication. Qualifiers: Hypertension type: essential hypertension Qualified Code(s): I10 - Essential (primary) hypertension (6) UTI (urinary tract infection) Onset Date: 03/10/18 Current Visit: Yes Status: Acute Plan: Patient with UTI. Urine culture positive for E coli. Will continue with IV antibiotic therapy. Qualifiers: Urinary tract infection type: site unspecified (7) GERD (gastroesophageal reflux disease) Onset Date: 03/10/18 Current Visit: Yes Status: Suspected Plan: Will continue with medication Qualifiers: Esophagitis presence: esophagitis presence not specified Qualified Code(s) : K21.9 - Gastro-esophageal reflux disease without esophagitis (8) Hyponatremia Onset Date: 03/10/18 Current Visit: Yes Status: Acute Plan: IV fluids adjusted. (9) Intra-abdominal abscess Current Visit: Yes Status: Acute Plan: Drainage of intra-abdominal abscess done in surgery. Will monitor closely. Continue with above plan of care Discharge Plan: Home Plan to discharge in: 24 Hours Time Spent Managing Pts Care (In Minutes): 55
[2018-03-13] MEDS: FAMOTIDINE 20 MG/2 ML VIAL IV SCH ×2 (09:58→21:00)
[2018-03-13] MEDS: HYDROCODONE/APAP 5/325 MG TAB PO PRN (10:00)
[2018-03-13] MEDS: PARoxetine HCl 10 MG TAB PO SCH (10:02)
[2018-03-13] MEDS: Levofloxacin500mg IV 500 MG/100 ML BAG IV SCH (11:13)
--- NOTE | 2018-03-13 17:40 | RAD REPORT ---
EXAM DESCRIPTION: RAD - Abdomen 1 View (K[facility]) - 03/13/2018 5:25 pm CLINICAL HISTORY: Abdominal pain, abdominal distention COMPARISON: CT study March 10 FINDINGS: Multiple prominent small bowel loops are present. Air is present in nondilated colon to th e level of the rectum. No free air or pneumatosis. No suspicious calcifications. Surgical staple cait es are still in place. No significant bony findings IMPRESSION: Prominent small bowel pattern with no free air or pneumatosis. Given the recent surgery this is most likely postop ileus.
[2018-03-13] MEDS: ENOXAPARIN 40 MG/0.4 ML SQ SCH (18:30)
[2018-03-13] MEDS ORDERED: MINERAL OIL 30 ML UCUP GT ONE (20:34)
--- NOTE | 2018-03-13 20:34 | P.PN ---
Date of Service: 03/13/18 S.: No specific complaints, just states that his abdomen feels a bit have the just below his umbilicus and slightly distended. Not requiring any pain medicine. O.: Vital signs remain stable, incisions are clean, the abdomen is soft but distended and mildly tympanic. Abdominal film suggestive of mild postoperative ileus. A: Patient doing well, remains afebrile with no white cell count H&H is stable. Abdominal film shows mild distention of the small bowel consistent with a postoperative ileus as we clinically suspected. P: Ambulate patient, continue with IV fluids, allow patient access to fluids. Will give him some. He has been up ambulating. Will also add a suppository. Anticipate home soon.
[2018-03-13] MEDS ORDERED: BISACODYL 10 MG RECTAL SUPP PR PRN (20:35)
[2018-03-13] MEDS: ROSUVASTATIN 10 MG TAB PO SCH (21:18)
[2018-03-14] MEDS: METRONIDAZOLE 500mg IVPB 500 MG/100 ML BAG IV SCH ×3 (00:35→18:04)
[2018-03-14 01:36] LABS: BUN Blood Urea Nitrogen 9 mg/dL (6-20); Bicarbonate 32 mEq/L (21-31); Glucose Level 117 mg/dL (65-120); Magnesium 1.8 mg/dL (1.8-2.5); Potassium 3.6 mEq/L (3.6-5.0); Sodium Level 133 mEq/L (135-145)
[2018-03-14] MEDS ORDERED: FUROSEMIDE 20 MG/ 2ML VIAL IV ONE (03:05)
--- NOTE | 2018-03-14 03:11 | P.PN ---
Date of Service: 03/14/18 Patient is a 72yo s/p laparascopic appendectomy. Called because of penile swelling by his RN, Becky. Reviewed chart. Patient's nutrition has not been that good since surgery. Patient had an albumin level of 2.7 on 03/10. Most likely it has worsened. Swelling of the penis most likely related to third spacing of fluid. Will give a low dose diuretic, recheck albumin level, and need to increase protein intake. Patient also exhibited some confusion as he wasn't sure exactly why he was in the hospital. Will need continued monitoring of his neurologic status. May need SNF placement.
[2018-03-14 04:06] VITALS: BMI 27.7
[2018-03-14] MEDS ORDERED: MAGNESIUM SULFATE 1 gm IVPB 1 GM/100 ML BAG IV ONE (04:17)
[2018-03-14] MEDS ORDERED: POTASSIUM 25 MEQ EFFERV TAB PO ONE (04:18)
[2018-03-14] MEDS: NA CHLORIDE 0.9% 1,000 ML IV SCH ×2 (04:50)
[2018-03-14] MEDS: METOPROLOL TAR 25 MG TAB PO SCH (05:11)
[2018-03-14] MEDS: LEVOTHYROXINE SOD 0.125 MG TAB PO SCH (05:12)
[2018-03-14 05:37] LABS: Albumin 2.4 g/dL (3.2-5.5); Bilirubin Direct 0.1 mg/dL (0-0.2); Bilirubin Total 0.4 mg/dL (0.3-1.2)
[2018-03-14] MEDS: PARoxetine HCl 10 MG TAB PO SCH (08:55)
--- NOTE | 2018-03-14 09:52 | P.PN ---
Subjective Date of Service: 03/14/18 Primary Care Provider: Dr. Mariano Chief Complaint: chest pain/abdominal pain Subjective: Other (Patient doing well. Less distention noted. Patient did have a bowel movement this morning.) Physical Examination - Vital Signs Temperature: 97.9 F Blood Pressure: 144/79 Pulse: 90 Respirations: 18 Pulse Ox (%): 93 - Physical Exam General: Alert, In no apparent distress, Oriented x3, Cooperative HEENT: Atraumatic Neck: Supple Respiratory: Clear to auscultation bilaterally, Normal air movement Cardiovascular: Normal pulses, Regular rate/rhythm Gastrointestinal: Normal bowel sounds, Soft and benign, No masses, No rebound, No guarding, Distended (Less distention noted this morning.), Tenderness ( Minimal pain to the right lower quadrant) Musculoskeletal: No tenderness, No warmth Integumentary: No tenderness/swelling, No erythema, No warmth, No cyanosis Neurological: Normal speech, Normal strength at 5/5 x4 extr, Normal tone, Normal affect - Studies Medications List Reviewed: Yes Assessment & Plan - Problems (Diagnosis) (1) Perforated appendicitis Onset Date: 03/10/18 Current Visit: Yes Status: Acute Plan: Patient doing well postop. Patient likely with postop ileus. Patient did have bowel movement today. Case discussed with surgery yesterday. Patient given suppository yesterday. Encourage ambulation. Will slowly advance diet. Encourage incentive spirometer. Anticipate discharge once improved with ambulation, tolerating diet and having regular bowel movement. (2) Hypothyroidism Onset Date: 03/10/18 Current Visit: Yes Status: Chronic Plan: Will continue with his medication Qualifiers: Hypothyroidism type: unspecified Qualified Code(s): E03.9 - Hypothyroidism , unspecified (3) Chest pain Onset Date: 03/10/18 Current Visit: Yes Status: Acute Plan: Echocardiogram unremarkable. This has resolved. Qualifiers: Chest pain type: precordial pain Qualified Code(s): R07.2 - Precordial pain (4) Dyslipidemia Onset Date: 03/10/18 Current Visit: Yes Status: Chronic Plan: Will continue with his medication (5) HTN (hypertension) Onset Date: 03/10/18 Current Visit: Yes Status: Chronic Plan: Will continue with his medication. Qualifiers: Hypertension type: essential hypertension Qualified Code(s): I10 - Essential (primary) hypertension (6) UTI (urinary tract infection) Onset Date: 03/10/18 Current Visit: Yes Status: Acute Plan: Patient with UTI. Urine culture positive for E coli. Will continue with IV antibiotic therapy. Qualifiers: Urinary tract infection type: site unspecified (7) GERD (gastroesophageal reflux disease) Onset Date: 03/10/18 Current Visit: Yes Status: Suspected Plan: Will continue with medication Qualifiers: Esophagitis presence: esophagitis presence not specified Qualified Code(s) : K21.9 - Gastro-esophageal reflux disease without esophagitis (8) Hyponatremia Onset Date: 03/10/18 Current Visit: Yes Status: Acute Plan: IV fluids adjusted. (9) Intra-abdominal abscess Current Visit: Yes Status: Acute Plan: Continue IV antibiotic therapy. White count improved. Will monitor closely. Continue with above plan of care (10) Postoperative ileus Current Visit: Yes Status: Acute Plan: Patient did have bowel meds today. Will continue with full liquid diet. Encourage ambulation. Limit pain medication. Continue with incentive spirometer. Slowly advance diet if improved. Discharge Plan: Home Plan to discharge in: 48 Hours Time Spent Managing Pts Care (In Minutes): 55
[2018-03-14] MEDS: FAMOTIDINE 20 MG/2 ML VIAL IV SCH ×2 (10:13→20:45)
[2018-03-14] MEDS: Levofloxacin500mg IV 500 MG/100 ML BAG IV SCH (10:15)
[2018-03-14] MEDS: ENOXAPARIN 40 MG/0.4 ML SQ SCH (18:03)
[2018-03-14] MEDS: ROSUVASTATIN 10 MG TAB PO SCH (20:45)
[2018-03-15] MEDS: METRONIDAZOLE 500mg IVPB 500 MG/100 ML BAG IV SCH ×3 (00:25→17:49)
[2018-03-15 05:23] LABS: Hematocrit 37.3 % (39.6-49.0); MCH 31.5 pg (27.0-35.0); MCV 93.9 fL (80-100); MPV 7.3 fL (7.6-11.3); RBC Red Blood Cell Count 3.97 M/uL (4.33-5.43)
[2018-03-15 05:45] LABS: BUN Blood Urea Nitrogen 9 mg/dL (6-20); Bicarbonate 33 mEq/L (21-31); Glucose Level 102 mg/dL (65-120); Magnesium 1.9 mg/dL (1.8-2.5); Potassium 3.7 mEq/L (3.6-5.0); Sodium Level 137 mEq/L (135-145)
[2018-03-15] MEDS: METOPROLOL TAR 25 MG TAB PO SCH (06:22)
[2018-03-15] MEDS: LEVOTHYROXINE SOD 0.125 MG TAB PO SCH (06:22)
[2018-03-15] MEDS: NA CHLORIDE 0.9% 1,000 ML IV SCH ×2 (06:25→17:49)
[2018-03-15] MEDS ORDERED: POTASSIUM 25 MEQ EFFERV TAB PO ONE (06:30)
[2018-03-15] MEDS: FAMOTIDINE 20 MG TAB PO SCH ×2 (10:07→20:24)
[2018-03-15] MEDS: PARoxetine HCl 10 MG TAB PO SCH (10:08)
[2018-03-15] MEDS: Levofloxacin500mg IV 500 MG/100 ML BAG IV SCH (11:24)
[2018-03-15] MEDS: ENOXAPARIN 40 MG/0.4 ML SQ SCH (17:52)
--- NOTE | 2018-03-15 18:01 | PN ---
Subjective: The patient is currently lying in bed. He looks comfortable. No chest pain. No abdomi nal pain. No fever. no chills overnight. His at the bedside. No nausea. No vomiting. He is able to tolerate diet well. He continued to have some abdominal distention. Objective: Vital Signs: Blood pressure is 151/78, respiratory rate 16, pulse 86, and temperature is 98. General: The patient is fully alert and oriented x3. Does not look in any distress. HEENT: Atraumatic, normocephalic. PERRLA. Oral mucosa is moist. Neck: Supple. No JVD. No carotid bruits. Chest: Clear to auscultation. Good air entry. Heart: Regular rate and rhythm. S1, S2 normal. No gallop or murmur. Abdomen: Soft, nontender. No masses. Slightly distended. Surgical wound with dressing. Active tomasa wel sounds. Extremities: No clubbing, cyanosis, or edema. No calf tenderness. NEUROLOGIC: Grossly intact. Laboratory Data: Labs today showed CBC was normal except for hemoglobin 12.5. Chemistry within norm al except for carbon dioxide 33 and chloride 96. Assessment And Plan: 1.Perforated appendicitis, postop day 5. The patient is doing well. Continue ambulation. The emily ent is tolerating diet. Discharge plan given on the surgical instruction. 2.Chest pain, resolved. 3.Hyperlipidemia, chronic, on Crestor. 4.Hypertension, controlled on metoprolol. 5.Hypothyroidism, continue Synthroid. 6.Intraabdominal abscess, status post surgery day 5. The patient is on IV antibiotic with Flagyl an d Levaquin. Antibiotic course to be decided by surgery. 7.Postoperative ileus, resolving. The patient is able to tolerate diet well. 8.Urinary tract infection, positive for E. coli, asymptomatic at this point. We will repeat UA. 9.Hyponatremia, resolved. 10.Deep vein thrombosis prophylaxis with Lovenox. TORI/AYAN Voice ID: [id number] Report ID: [id number]
[2018-03-15] MEDS: ROSUVASTATIN 10 MG TAB PO SCH (20:24)
[2018-03-15 20:53] LABS: Urine Appearance CLEAR; Urine Bilirubin NEGATIVE (NEG); Urine Blood NEGATIVE (NEG); Urine Color YELLOW; Urine Glucose NEGATIVE (NEG); Urine Protein 1+ (NEG); Urine Specific Gravity 1.015 (1.005-1.030); Urine Urobilinogen 0.2 mg/dL (0.2-1.0)
[2018-03-15 21:30] LABS: Urine Bacteria <20 /HPF (NONE SEEN); Urine Culture Reflex Order NOT NEEDED; Urine RBC <5 /HPF (NONE SEEN)
[2018-03-16] MEDS: LEVOTHYROXINE SOD 0.125 MG TAB PO SCH (05:02)
[2018-03-16] MEDS: METOPROLOL TAR 25 MG TAB PO SCH (05:02)
[2018-03-16 05:14] LABS: Hematocrit 34.8 % (39.6-49.0); MCH 31.9 pg (27.0-35.0); MCV 94.5 fL (80-100); MPV 7.6 fL (7.6-11.3); RBC Red Blood Cell Count 3.68 M/uL (4.33-5.43)
[2018-03-16 05:34] LABS: BUN Blood Urea Nitrogen 10 mg/dL (6-20); Bicarbonate 31 mEq/L (21-31); Glucose Level 99 mg/dL (65-120); Potassium 4.1 mEq/L (3.6-5.0); Sodium Level 139 mEq/L (135-145)
[2018-03-16] MEDS: FAMOTIDINE 20 MG TAB PO SCH ×2 (09:33→20:27)
[2018-03-16] MEDS: PARoxetine HCl 10 MG TAB PO SCH (09:33)
[2018-03-16] MEDS: Levofloxacin500mg IV 500 MG/100 ML BAG IV SCH (09:39)
[2018-03-16] MEDS: METRONIDAZOLE 500mg IVPB 500 MG/100 ML BAG IV SCH ×3 (09:39→17:33)
--- NOTE | 2018-03-16 15:31 | PN ---
Subjective: Currently, the patient is lying in bed. He looks comfortable. He is still on a full li quid diet, but he stated that he is tolerating that well. He is willing to try a regular diet. No f ever and no chills overnight. No chest pain. He is not moving much. He continued to have abdominal distention. Objective: Vital Signs: Currently vital signs, blood pressure is 138/76, respiratory rate 18, pulse 58, temperature 98.5, he is saturating 96% on room air. General: He is fully alert and oriented x3. Does not look in any distress. HEENT: Atraumatic and normocephalic. PERRLA. Oral mucosa is moist. Neck: Supple. No JVD. No carotid bruits. Chest: Clear to auscultation. Good air entry. Heart: Regular rate and rhythm. S1 and S2 normal. No gallop or murmur. Abdomen: Soft, nontender. No masses. Distended, but has active bowel sounds. Surgical wound with dressing. Extremities: No clubbing, no cyanosis, or edema. No calf tenderness. Neurologic: Grossly intact. Laboratory Data: Labs showed normal CBC except for hemoglobin at 11.8. Chemistry within normal. Ca lcium 8.3. Assessment And Plan: 1.Perforated appendicitis, postoperative day 6. The patient is doing very well. Continue ambulatio n. I will advance the diet to regular. The patient is currently on full liquid. Discharge plan hop efully in a.m. if surgery is okay with that. 2.Chest pain resolved. 3.Hyperlipidemia, chronic, on Crestor. 4.Hypertension, well controlled on metoprolol. 5.Hypothyroidism. Continue Synthroid. 6.History of intraabdominal abscesses, status post surgery, postoperative day 6 today. Continue IV antibiotics with Flagyl and Levaquin. Probably, we should be able to switch back to oral tomorrow be fore discharge if surgery is okay with that. Postoperative ileus resolve. 7.Urinary tract infection, positive for Escherichia coli on urine culture. Repeated urinalysis yest erday was negative. So most likely, urinary tract infection cleared. 8.Deep venous thrombosis prophylaxis on Lovenox. TORI/AYAN Voice ID: [id number] Report ID: [id number]
[2018-03-16] MEDS: ENOXAPARIN 40 MG/0.4 ML SQ SCH (17:33)
[2018-03-16] MEDS: ROSUVASTATIN 10 MG TAB PO SCH (20:27)
[2018-03-16] MEDS: NA CHLORIDE 0.9% 1,000 ML IV SCH (22:40)
[2018-03-17 01:17] VITALS: O2SAT 97
[2018-03-17] MEDS: METRONIDAZOLE 500mg IVPB 500 MG/100 ML BAG IV SCH ×2 (01:24→09:11)
[2018-03-17 04:07] LABS: MCH 31.4 pg (27.0-35.0); MCV 93.9 fL (80-100); MPV 7.3 fL (7.6-11.3); RBC Red Blood Cell Count 3.62 M/uL (4.33-5.43)
[2018-03-17] MEDS: METOPROLOL TAR 25 MG TAB PO SCH (06:47)
[2018-03-17] MEDS: LEVOTHYROXINE SOD 0.125 MG TAB PO SCH (06:47)
[2018-03-17] MEDS: Levofloxacin500mg IV 500 MG/100 ML BAG IV SCH (09:11)
[2018-03-17] MEDS: FAMOTIDINE 20 MG TAB PO SCH (09:11)
[2018-03-17] MEDS: PARoxetine HCl 10 MG TAB PO SCH (09:11)
[2018-03-17 10:03] VITALS: BP 144/86; TEMP 97.3
--- NOTE | 2018-03-17 11:42 | P.DS ---
Admission Date: 03/10/18 Discharge Date: 03/17/18 Primary Care Provider: Dr. Mariano Disposition: ROUTINE DISCHARGE Discharge Condition: GOOD Reason for Admission: chest pain/abdominal pain Consultations: Surgery-Dr. aVldivia Procedures: Echocardiogram: Ejection fraction 65% otherwise unremarkable. CT scan: Perforated appendicitis. Surgery: 03/10/2018, laparoscopic appendectomy with drainage of intra-abdominal abscess - Problems (1) Perforated appendicitis Onset Date: 03/10/18 Current Visit: Yes Status: Acute (2) Hypothyroidism Onset Date: 03/10/18 Current Visit: Yes Status: Chronic Qualifiers: Hypothyroidism type: unspecified Qualified Code(s): E03.9 - Hypothyroidism , unspecified (3) Chest pain Onset Date: 03/10/18 Current Visit: Yes Status: Acute Qualifiers: Chest pain type: precordial pain Qualified Code(s): R07.2 - Precordial pain (4) Dyslipidemia Onset Date: 03/10/18 Current Visit: Yes Status: Chronic (5) HTN (hypertension) Onset Date: 03/10/18 Current Visit: Yes Status: Chronic Qualifiers: Hypertension type: essential hypertension Qualified Code(s): I10 - Essential (primary) hypertension (6) UTI (urinary tract infection) Onset Date: 03/10/18 Current Visit: Yes Status: Acute Qualifiers: Urinary tract infection type: site unspecified (7) GERD (gastroesophageal reflux disease) Onset Date: 03/10/18 Current Visit: Yes Status: Suspected Qualifiers: Esophagitis presence: esophagitis presence not specified Qualified Code(s) : K21.9 - Gastro-esophageal reflux disease without esophagitis (8) Hyponatremia Onset Date: 03/10/18 Current Visit: Yes Status: Acute (9) Intra-abdominal abscess Current Visit: Yes Status: Acute (10) Postoperative ileus Current Visit: Yes Status: Acute (11) Bacteremia Current Visit: Yes Status: Acute (12) Depression Current Visit: Yes Status: Chronic Qualifiers: Depression Type: unspecified Qualified Code(s): F32.9 - Major depressive disorder, single episode, unspecified (13) CAD (coronary artery disease) Current Visit: Yes Status: Chronic Qualifiers: Coronary Disease-Associated Artery/Lesion type: unspecified vessel or lesion type [place] vs. transplanted heart: unspecified whether [place] or transplanted heart Associated angina: angina presence unspecified Qualified Code(s): I25.10 - Atherosclerotic heart disease of [place] coronary artery without angina pectoris (14) Dementia Current Visit: Yes Status: Chronic Brief History of Present Illness: 72-year-old male presented with chest pain. The patient was evaluated emergency room. Initial cardiac enzymes unremarkable. Patient with history of hypertension and hyperlipidemia. The patient was admitted further evaluation. Hospital Course: During his stay a cardiac enzymes for unremarkable. Echocardiogram showed a normal ejection fraction 65%. The patient persisted to have pain. Pain was radiating to the back and abdominal area. Patient found to have a UTI. Antibiotics were initiated. Then the following day patient start a half increasing abdominal distention and more pain to the right lower quadrant. CT scan showed perforated appendicitis. Surgery was immediately consulted. Patient then had laparoscopic appendectomy with a drainage of intra-abdominal abscess. Patient tolerated the procedure well. After his procedure the patient developed a postoperative ileus. This resolved over time. Patient ambulating well at discharge. Patient tolerated his diet well at discharge. No significant nausea, vomiting or abdominal pain noted. The patient did have urine cultures positive for E coli. 1/2 blood cultures were positive for Pseudomonas. At discharge repeat urine cultures so far negative. Repeat blood cultures have been obtained. This can be followed up as an outpatient. At discharge patient will need to complete Levaquin 500 mg daily for total of 14 days along with Flagyl 500 mg 1 pill twice 3 times. Patient will be given Dulcolax to be use as needed for constipation. At discharge patient will also be provided tramadol 50 mg 1 pill 3 times a day as needed for pain. Patient will follow up with surgery within one week(Saturday) to follow up this hospitalization. Patient will continue with postoperative care. No heavy lifting, pushing or pulling is recommended. Patient has hypertension. Medication was adjusted during his stay. Metoprolol has been decreased. At discharge he will continue with metoprolol 25 mg 1 pill once daily and lisinopril 10 mg 1 pill daily. Recommendation is to maintain blood pressures less 150/80. Further adjustment can be done by his PCP. Patient has hyperlipidemia. Patient will continue with Crestor 10 mg 1 pill once daily. Patient has depression. Patient will continue with Paxil 10 mg 1 pill once daily. Patient has hypothyroidism. Patient will continue with Levoxyl 125 mcg 1 pill daily. Tsh was slightly elevated but free T4 was normal. Recommendation is to recheck tsh and free T4 in 2 weeks to monitor his progress. Medications may need to be adjusted at that time. Patient has GERD. Patient may continue with Prilosec once daily. Patient previously taking Aricept for suspected dementia. Patient may continue with his medication. Patient with history of CAD. Patient may continue with Plavix 75 mg 1 pill once daily. Vital Signs/Physical Exam: Temp Pulse Resp BP Pulse Ox 97.3 F 66 18 144/86 H 97 03/17/18 08:00 03/17/18 08:00 03/17/18 08:00 03/17/18 08:00 03/17/18 08:00 General: Alert, In no apparent distress, Oriented x3, Cooperative HEENT: Atraumatic, Normocephalic, Mucous membr. moist/pink Neck: Supple, No Thyromegaly Respiratory: Clear to auscultation bilaterally, Normal air movement Cardiovascular: Normal pulses, Regular rate/rhythm Gastrointestinal: Normal bowel sounds, Soft and benign, Non-distended, No tenderness, No masses, No rebound, No guarding, Other (Postop changes noted) Musculoskeletal: No erythema, No tenderness, No warmth Integumentary: No tenderness/swelling, No erythema, No warmth, No cyanosis Neurological: Normal speech, Normal strength at 5/5 x4 extr, Normal tone, Normal affect Lymphatics: No axilla or inguinal lymphadenopathy Laboratory Data at Discharge: WBC 8.1 K/uL (4.3-10.9) 03/17/18 03:52 Hgb 11.4 g/dL (13.6-17.9) L 03/17/18 03:52 Hct 34.0 % (39.6-49.0) L 03/17/18 03:52 Plt Count 402 K/uL (152-406) 03/17/18 03:52 PT 11.6 SECONDS (9.5-12.5) 03/08/18 14:10 INR 0.98 03/08/18 14:10 APTT 24.0 SECONDS (24.3-36.9) L 03/08/18 14:10 Sodium 139 mEq/L (135-145) 03/16/18 04:17 Potassium 4.1 mEq/L (3.6-5.0) 03/16/18 04:17 BUN 10 mg/dL (6-20) 03/16/18 04:17 Creatinine 0.78 mg/dL (0.61-1.24) 03/16/18 04:17 Glucose 99 mg/dL (65-120) 03/16/18 04:17 Magnesium 1.9 mg/dL (1.8-2.5) 03/15/18 04:20 Total Bilirubin 0.4 mg/dL (0.3-1.2) 03/14/18 04:38 AST 18 IU/L (10-42) 03/14/18 04:38 ALT 11 IU/L (10-60) 03/14/18 04:38 Alkaline Phosphatase 39 IU/L (42-121) L 03/14/18 04:38 Troponin I < 0.03 ng/mL (<0.03) 03/09/18 12:40 B-Natriuretic Peptide 68 pg/ml (<=100) 03/08/18 14:10 Triglycerides 65 mg/dL (35-160) 03/08/18 21:14 Cholesterol 220 mg/dL (<200) H 03/08/18 21:14 HDL Cholesterol 80 mg/dL (27-67) H 03/08/18 21:14 Cholesterol/HDL Ratio 2.75 03/08/18 21:14 Home Medications: Clopidogrel Bisulfate [Plavix*] 75 mg PO DAILY 05/02/15 Levothyroxine [Synthroid*] 125 mcg PO [id number] 05/02/15 Lisinopril 10 mg PO DAILY 05/02/15 Loratadine [Claritin*] 10 mg PO DAILY 05/02/15 Omeprazole 20 mg PO DAILY 05/02/15 Rosuvastatin [Crestor*] 10 mg PO DAILY 05/02/15 Donepezil [Aricept*] 5 mg PO DAILY 03/08/18 Paroxetine HCl [Paxil*] 10 mg PO DAILY 03/08/18 Bisacodyl [Dulcolax*] 10 mg [place] DAILY PRN #10 supp 03/17/18 Levofloxacin [Levaquin] 500 mg PO DAILY #7 tab 03/17/18 Metoprolol Tartrate [Lopressor*] 25 mg PO [id number] #30 tab 03/17/18 Metronidazole [Flagyl] 500 mg PO Q8H #21 tablet 03/17/18 New Medications: Bisacodyl [Dulcolax*] 10 mg VA DAILY PRN #10 supp PRN Reason: Constipation Levofloxacin [Levaquin] 500 mg PO DAILY #7 tab Metoprolol Tartrate [Lopressor*] 25 mg PO [id number] #30 tab Metronidazole [Flagyl] 500 mg PO Q8H #21 tablet Patient Discharge Instructions: 1. Patient will need a follow up with PCP in 1 week to follow up this hospitalization. 2. Patient presented with chest pain. Cardiac enzymes unremarkable. Echocardiogram showed a normal ejection fraction 65%. 3. Patient also had abdominal pain. Patient found to have a UTI. Medication was started. Patient continue with abdominal pain and found to have perforated appendicitis. Surgery was consulted. Patient had immediate surgery. Patient then had laparoscopic appendectomy with a drainage of intra- abdominal abscess. Patient tolerated the procedure well. After his procedure the patient developed a postoperative ileus. This has resolved. Patient ambulating well at discharge and tolerating his diet. No significant nausea, vomiting or abdominal pain noted. At discharge patient will need to complete Levaquin 500 mg daily for total of 14 days along with Flagyl 500 mg 1 pill twice 3 times. At discharge patient will also be provided tramadol 50 mg 1 pill 3 times a day as needed for pain. Patient will follow up with surgery within one week(Saturday) to follow up this hospitalization. Patient will continue with postoperative care. No heavy lifting, pushing or pulling is recommended. Patient will need a follow up on repeat blood cultures. Repeat urine culture so far negative. 4. Patient has hypertension. Medication was adjusted during his stay. Metoprolol has been decreased. At discharge he will continue with metoprolol 25 mg 1 pill once daily and lisinopril 10 mg 1 pill daily. Recommendation is to maintain blood pressures less 150/80. Further adjustment can be done by his PCP. 5. Patient has hyperlipidemia. Patient will continue with Crestor 10 mg 1 pill once daily. 6. Patient has depression. Patient will continue with Paxil 10 mg 1 pill once daily. 7. Patient has hypothyroidism. Patient will continue with Levoxyl 125 mcg 1 pill daily. Tsh was slightly elevated but free T4 was normal. Recommendation is to recheck tsh and free T4 in 2 weeks to monitor his progress. Medications may need to be adjusted at that time. 8. Patient previously taking Aricept for suspected dementia. Patient may continue with his medication. 9. Patient with history of CAD. Patient may continue with Plavix 75 mg 1 pill once daily. Diet: AHA (Soft diet) Activity: Ad stephany Time spent managing pt's care (in minutes): 55
== END 2018-03-17 13:10 | disposition home or self-care (01) | DRG 339 ==
LOC: ER 13:26 → ERHOLD 18:22 → 4TH 20:07 → OBSVTOIN 03-10 07:38 → 3RD-ICU 03-10 10:09 → 4TH 03-12 13:11
PROVIDERS: ADMIT Internal Medicine; ATTEND Family Medicine
PROC: 0W9G4ZZ Drainage of Peritoneal Cavity, Percutaneous Endoscopic Approach (ICD-10-PCS; 2018-03-10)
PROC: 0DTJ4ZZ Resection of Appendix, Percutaneous Endoscopic Approach (ICD-10-PCS; principal; 2018-03-10 13:00)
DX: K35.2 Acute appendicitis with generalized peritonitis (principal); N39.0 Urinary tract infection, site not specified; E87.1 Hypo-osmolality and hyponatremia; K56.7 Ileus, unspecified; B96.20 Unspecified Escherichia coli [E. coli] as the cause of diseases classified elsewhere; I25.10 Atherosclerotic heart disease of native coronary artery without angina pectoris; E78.5 Hyperlipidemia, unspecified; I10 Essential (primary) hypertension; E03.9 Hypothyroidism, unspecified; R07.89 Other chest pain; K21.9 Gastro-esophageal reflux disease without esophagitis; F03.90 Unspecified dementia, unspecified severity, without behavioral disturbance, psychotic disturbance, mood disturbance, and anxiety; I25.2 Old myocardial infarction
CPT/HCPCS: 36415; 71045; 74018; 74176; 80048; 80053; 80061; 80076; 81001; 82550; 82553; 83605; 83735; 83880; 84145; 84439; 84443; 84484; 85014; 85018; 85025; 85027; 85610; 85730; 87040; 87077; 87086; 87088; 87186; 87205; 88304; 93005; 93306; 97163; 99285; J0696; J1170; J1650; J1940; J2250; J2270; J2370; J2405; J2710; J3010; J3475; J7030